=== PATIENT | male | born 1970 | race Caucasian/White ===

== ENCOUNTER 2018-03-29 17:35 | Emergency (ER) | payer OTHER ==
[~2018-03-29] VITALS: Ht 188 cm; Wt 78.2 kg
[2018-03-29 19:07] LABS: CLARITY,URINE CLEAR (Clear); COLOR,URINE YELLOW (Yellow); GLUCOSE, URINE NEGATIVE (Neg); KETONES,URINE NEGATIVE (Neg); LEUKOCYTE ESTERASE ,URINE NEGATIVE (Neg); NITRITES, URINE NEGATIVE (Neg); OCCULT BLOOD,URINE MODERATE (Neg); PH,URINE 5.5 (4.8-8.0); PROTEIN,URINE NEGATIVE (Neg); UROBILINOGEN,URINE 0.2 E.U/dL (0.2-1.0)
[2018-03-29 19:09] LABS: UA COLLECTION TYPE CLN CATCH MIDSTREAM
[2018-03-29 19:12] LABS: BASOPHILS % (AUTO) 0.5 % (0-1); EOSINOPHILS # (AUTO) 0.3 X10'3 (0-0.9); EOSINOPHILS % (AUTO) 5.2 % (0-6); HEMOGLOBIN 14.5 g/dl (14.0-17.9); LYMPHOCYTES # (AUTO) 1.7 X10'3 (1.1-4.8); LYMPHOCYTES % (AUTO) 32.9 % (21-51); MEAN CORPUSCULAR HEMOGLOBIN 30.4 PG (27.0-31.0); MEAN CORPUSCULAR HGB CONC 34.4 % (33.0-36.5); MEAN CORPUSCULAR VOLUME 88.3 FL (78-98); MEAN PLATELET VOLUME 8.6 FL (7.4-10.4); MONOCYTES # (AUTO) 0.4 X10'3 (0-0.9); MONOCYTES % (AUTO) 8.4 % (2-12); NEUTROPHILS # (AUTO) 2.8 X10'3 (1.8-7.7); PLATELET COUNT 208 X10'3 (140-440); RED BLOOD COUNT 4.76 X10'6 (4.70-6.10); RED CELL DISTRIBUTION WIDTH 12.4 % (11.5-14.5); WHITE BLOOD COUNT 5.3 X10'3 (4.5-11.0)
[2018-03-29 19:14] LABS: WBC,URINE NONE SEEN /HPF (0-4)
[2018-03-29 19:15] LABS: BACTERIA,URINE NONE SEEN /HPF (Neg); MUCUS STRANDS FEW /LPF (Neg); RBC,URINE 20-50 /HPF (0-2); SQUAMOUS EPITHELIAL CELL,UR FEW /LPF (FEW)
[2018-03-29 19:21] LABS: ALANINE AMINOTRANSFERASE 36 U/L (12-78); ALBUMIN/GLOBULIN RATIO 1.1 (1.1-1.5); ALKALINE PHOSPHATASE 43 IU/L (46-116); ANION GAP 8 (8-16); ASPARTATE AMINO TRANSFERASE 16 U/L (10-37); BILIRUBIN,TOTAL 0.6 MG/DL (0.1-1.0); BLOOD UREA NITROGEN 22 MG/DL (7-18); BUN/CREATININE RATIO 20.8 (5.4-32.0); CALCIUM 9.1 MG/DL (8.5-10.1); CHLORIDE 109 MMOL/L (99-107); CREATININE 1.06 MG/DL (0.60-1.10); GLUCOSE 115 MG/DL (70-104); POTASSIUM 3.9 MMOL/L (3.5-5.1); SODIUM 144 MMOL/L (135-145); TOTAL PROTEIN 7.5 G/DL (6.4-8.2); eGFR 74 ML/MIN
[2018-03-29] MEDS ORDERED: HYDR-565 PO (19:55)
[2018-03-29] MEDS ORDERED: FLO0.4C PO (19:55)
[2018-03-29] MEDS ORDERED: IBUP-1984 PO (19:55)
[2018-03-29 20:14] VITALS: BP 127/79
== END 2018-03-29 20:16 | disposition home or self-care (01) ==
LOC: ER 17:36
DX: N20.2 Calculus of kidney with calculus of ureter (principal); Z79.899 Other long term (current) drug therapy
CPT/HCPCS: 36415; 74176; 80053; 81001; 85025; 99285

== ENCOUNTER 2018-05-30 01:39 | Inpatient (IN) | payer OTHER ==
[~2018-05-30] VITALS: Ht 188 cm; Wt 95.5 kg
[2018-05-30] MEDS ORDERED: ketorolac trometh. 30mg/ml inj. IV ONE (02:30)
[2018-05-30] MEDS ORDERED: normal saline 1000ML IV soln IVB ONE (02:30)
[2018-05-30] MEDS ORDERED: meperidine/PF 50mg/ml syringe IV ONE (02:30)
[2018-05-30] MEDS ORDERED: LIDOcaine 2% (20 mg/ml) 5ml cardiac syringe IV STA (02:30)
[2018-05-30] MEDS ORDERED: tamsulosin 0.4mg capsule PO ONE (02:30)
[2018-05-30 02:55] LABS: BASOPHILS % (AUTO) 0.5 % (0-1); EOSINOPHILS # (AUTO) 0.1 X10'3 (0-0.9); EOSINOPHILS % (AUTO) 0.6 % (0-6); HEMATOCRIT 42.8 % (42.0-52.0); HEMOGLOBIN 14.7 g/dl (14.0-17.9); LYMPHOCYTES # (AUTO) 0.6 X10'3 (1.1-4.8); LYMPHOCYTES % (AUTO) 6.9 % (21-51); MEAN CORPUSCULAR HEMOGLOBIN 30.4 PG (27.0-31.0); MEAN CORPUSCULAR HGB CONC 34.4 % (33.0-36.5); MEAN CORPUSCULAR VOLUME 88.4 FL (78-98); MEAN PLATELET VOLUME 8.4 FL (7.4-10.4); MONOCYTES # (AUTO) 0.4 X10'3 (0-0.9); MONOCYTES % (AUTO) 4.7 % (2-12); NEUTROPHILS # (AUTO) 7.8 X10'3 (1.8-7.7); NEUTROPHILS % (AUTO) 87.3 % (42-75); PLATELET COUNT 202 X10'3 (140-440); RED BLOOD COUNT 4.84 X10'6 (4.70-6.10); RED CELL DISTRIBUTION WIDTH 12.6 % (11.5-14.5)
[2018-05-30 03:13] LABS: ALANINE AMINOTRANSFERASE 39 U/L (12-78); ALBUMIN 4.2 G/DL (3.4-5.0); ALBUMIN/GLOBULIN RATIO 1.2 (1.1-1.5); ALKALINE PHOSPHATASE 47 IU/L (46-116); ANION GAP 9 (8-16); ASPARTATE AMINO TRANSFERASE 20 U/L (10-37); BILIRUBIN,TOTAL 0.8 MG/DL (0.1-1.0); BLOOD UREA NITROGEN 22 MG/DL (7-18); BUN/CREATININE RATIO 15.9 (5.4-32.0); CALCIUM 9.1 MG/DL (8.5-10.1); CHLORIDE 104 MMOL/L (99-107); CREATININE 1.38 MG/DL (0.60-1.10); GLUCOSE 137 MG/DL (70-104); POTASSIUM 3.9 MMOL/L (3.5-5.1); SODIUM 139 MMOL/L (135-145); TOTAL CARBON DIOXIDE 26.5 MMOL/L (24-32); TOTAL PROTEIN 7.8 G/DL (6.4-8.2); eGFR 55 ML/MIN
[2018-05-30] MEDS ORDERED: KETO10TA2 PO (05:33)
[2018-05-30] MEDS ORDERED: FLO0.4C PO (05:33)
[2018-05-30] MEDS ORDERED: HYDR-565 PO (05:33)
[2018-05-30] MEDS ORDERED: ONDA4TAB9 SL (05:33)
[2018-05-30] MEDS ORDERED: levoFLOXACIN-Levaquin 750MG/D5 150 ML IV STA (05:53)
[2018-05-30] MEDS ORDERED: TAMSULOSIN CAP 0.4MG (05:58)
[2018-05-30] MEDS ORDERED: ondansetron/PF 4mg/2ml inj IV PRN (07:35)
[2018-05-30] MEDS ORDERED: bisacodyl 10mg suppository rectal RC PRN (07:35)
[2018-05-30] MEDS ORDERED: diphenhydrAMINE 25mg capsule PO PRN (07:35)
[2018-05-30] MEDS ORDERED: morphine 4 MG/ML inj SYRINge IV PRN (07:35)
[2018-05-30] MEDS ORDERED: HYDROmorphone inj. 0.5 MG/0.5 ML DISP.SYRIN IV PRN ×2 (07:35)
[2018-05-30] MEDS ORDERED: mag hydrox/Alum hydrox/simeth 30ml oral suspension PO PRN (07:35)
[2018-05-30] MEDS ORDERED: HYDROcodone/acetaminophen 5mg/325mg tablet PO PRN (07:35)
[2018-05-30] MEDS ORDERED: acetaminophen 650mg rectal suppository RC PRN (07:35)
[2018-05-30] MEDS ORDERED: metoclopramide 5 mg/ml inj IV PRN (07:35)
[2018-05-30] MEDS ORDERED: magnesium hydroxide 30ml (MOM) UD suspension PO PRN (07:35)
[2018-05-30] MEDS ORDERED: acetaminophen 325mg tablet PO PRN ×2 (07:35)
[2018-05-30] MEDS ORDERED: diphenhydrAMINE 50 mg/ml inj IV PRN (07:35)
[2018-05-30] MEDS: docusate sod 100mg capsule PO SCH ×2 (08:00→19:59)
[2018-05-30] MEDS: levoFLOXACIN-Levaquin 750MG/D5 150 ML IV SCH (08:00)
[2018-05-30 08:21] LABS: CLARITY,URINE CLEAR (Clear); COLOR,URINE YELLOW (Yellow); GLUCOSE, URINE NEGATIVE (Neg); KETONES,URINE NEGATIVE (Neg); LEUKOCYTE ESTERASE ,URINE NEGATIVE (Neg); NITRITES, URINE NEGATIVE (Neg); OCCULT BLOOD,URINE LARGE (Neg); PROTEIN,URINE NEGATIVE (Neg); UROBILINOGEN,URINE 0.2 E.U/dL (0.2-1.0)
[2018-05-30 08:25] LABS: UA COLLECTION TYPE CLN CATCH MIDSTREAM
[2018-05-30 08:26] LABS: BACTERIA,URINE NONE SEEN /HPF (Neg); RBC,URINE 0-2 /HPF (0-2); WBC,URINE 0-4 /HPF (0-4)
[2018-05-30 08:27] LABS: MUCUS STRANDS NONE SEEN /LPF (Neg); SQUAMOUS EPITHELIAL CELL,UR NONE SEEN /LPF (FEW)
[2018-05-30] MEDS: dextrose 5%-1/2 normal saline 1,000 ML IV SCH ×2 (08:52→20:38)
[2018-05-30 10:32] LABS: PARTIAL THROMBOPLASTIN TIME 24 SECONDS (22-32); PROTHROMBIN TIME 10.8 SECONDS (9.0-12.0)
[2018-05-30] MEDS ORDERED: GLUC1CAP33 PO (10:42)
[2018-05-30] MEDS ORDERED: MULT-38 PO (10:42)
[2018-05-30] MEDS ORDERED: METO100T7 PO (10:42)
[2018-05-30] MEDS ORDERED: LOSA25TA21 PO (10:42)
[2018-05-30 10:45] LABS: PHOSPHORUS 3.7 MG/DL (2.3-4.5)
[2018-05-30] MEDS ORDERED: HYDROmorphone 1 mg/ml syringe ONE (13:27)
[2018-05-30 15:00] VITALS: BP 131/80
[2018-05-30] MEDS: morphine 4 MG/ML inj SYRINge IV PRN ×2 (16:11→20:45)
[2018-05-30] MEDS: HYDROcodone/acetaminophen 10/325mg tab PO PRN ×2 (17:16→21:22)
[2018-05-30 20:00] VITALS: BP 120/72
[2018-05-30] MEDS ORDERED: temazepam 15mg capsule PO PRN (21:00)
[2018-05-30] MEDS ORDERED: HYDROmorphone 1 mg/ml syringe IV PRN (21:38)
[2018-05-31] VITALS (12 sets, daily range): BP systolic 107–146; BP diastolic 55–81
[2018-05-31] MEDS: HYDROmorphone 1 mg/ml syringe IV PRN ×3 (00:59→10:19)
[2018-05-31] MEDS: dextrose 5%-1/2 normal saline 1,000 ML IV SCH ×2 (03:32→07:43)
[2018-05-31 06:06] LABS: BASOPHILS % (AUTO) 0.2 % (0-1); EOSINOPHILS # (AUTO) 0.2 X10'3 (0-0.9); EOSINOPHILS % (AUTO) 2.8 % (0-6); HEMATOCRIT 36.6 % (42.0-52.0); HEMOGLOBIN 12.6 g/dl (14.0-17.9); LYMPHOCYTES # (AUTO) 1.9 X10'3 (1.1-4.8); MEAN CORPUSCULAR HEMOGLOBIN 30.3 PG (27.0-31.0); MEAN CORPUSCULAR HGB CONC 34.5 % (33.0-36.5); MEAN CORPUSCULAR VOLUME 87.9 FL (78-98); MEAN PLATELET VOLUME 7.9 FL (7.4-10.4); MONOCYTES # (AUTO) 0.5 X10'3 (0-0.9); MONOCYTES % (AUTO) 8.9 % (2-12); NEUTROPHILS # (AUTO) 3.4 X10'3 (1.8-7.7); NEUTROPHILS % (AUTO) 56.1 % (42-75); PLATELET COUNT 180 X10'3 (140-440); RED BLOOD COUNT 4.16 X10'6 (4.70-6.10); RED CELL DISTRIBUTION WIDTH 12.8 % (11.5-14.5); WHITE BLOOD COUNT 6.1 X10'3 (4.5-11.0)
[2018-05-31 06:28] LABS: ALANINE AMINOTRANSFERASE 31 U/L (12-78); ALBUMIN 3.3 G/DL (3.4-5.0); ALKALINE PHOSPHATASE 35 IU/L (46-116); ANION GAP 3 (8-16); ASPARTATE AMINO TRANSFERASE 22 U/L (10-37); BILIRUBIN,TOTAL 1.2 MG/DL (0.1-1.0); BLOOD UREA NITROGEN 17 MG/DL (7-18); BUN/CREATININE RATIO 16.8 (5.4-32.0); CALCIUM 8.6 MG/DL (8.5-10.1); CHLORIDE 108 MMOL/L (99-107); CREATININE 1.01 MG/DL (0.60-1.10); GLUCOSE 101 MG/DL (70-104); POTASSIUM 3.6 MMOL/L (3.5-5.1); SODIUM 140 MMOL/L (135-145); TOTAL CARBON DIOXIDE 29.5 MMOL/L (24-32); TOTAL PROTEIN 6.5 G/DL (6.4-8.2); eGFR 79 ML/MIN
[2018-05-31] MEDS: docusate sod 100mg capsule PO SCH (07:03)
[2018-05-31] MEDS: levoFLOXACIN-Levaquin 750MG/D5 150 ML IV SCH (07:42)
[2018-05-31] MEDS: HYDROcodone/acetaminophen 10/325mg tab PO PRN ×2 (07:42→17:40)
[2018-05-31] MEDS ORDERED: pantoprazole 40 MG vial IV SCH (08:00)
[2018-05-31] MEDS ORDERED: ringers solution, lacted 1,000 ML IV SCH (12:56)
[2018-05-31] MEDS ORDERED: morphine 4 MG/ML inj SYRINge IV PRN ×2 (13:00)
[2018-05-31] MEDS ORDERED: proCHLORperazine 10 MG/2 ml inj IV PRN (13:00)
[2018-05-31] MEDS ORDERED: ondansetron/PF 4mg/2ml inj IV PRN (13:00)
[2018-05-31] MEDS ORDERED: meperidine/PF 25mg/ml syringe IV PRN ×3 (13:00)
[2018-05-31] MEDS ORDERED: midazolam 2 mg/2 ml injection ONE (13:24)
[2018-05-31] MEDS ORDERED: fentaNYL/PF 50MCG/1 ML 2ML syringe ONE (13:24)
[2018-05-31] MEDS ORDERED: LIDOcaine 2% (20mg/ml) 5ml vial ONE (13:27)
[2018-05-31] MEDS ORDERED: propofol inj 20 ML IV ONE (13:27)
[2018-05-31] MEDS ORDERED: propofol 10mg/ml 20ml vial IV ONE (13:45)
[2018-05-31] MEDS ORDERED: sevoflurane 250ml liquid IH ONE (13:45)
[2018-05-31] MEDS ORDERED: dexamethasone sod phosphate 4mg/ml inj. ONE (13:45)
[2018-05-31] MEDS ORDERED: LIDOcaine 1%/PF 5ML 10 MG/ML VIAL ONE (13:45)
[2018-05-31] MEDS ORDERED: ondansetron/PF 4mg/2ml inj ONE (14:10)
[2018-05-31] MEDS ORDERED: HYDR-569 PO (18:15)
== END 2018-05-31 20:28 | disposition home or self-care (01) | DRG 670 ==
LOC: ER 01:39 → ED HOLD 07:32 → SUR 3N 15:35 → PACU 05-31 13:13 → SUR 3N 05-31 16:27
PROVIDERS: ADMIT Family Medicine; ATTEND Family Medicine
PROC: 0TC68ZZ Extirpation of Matter from Right Ureter, Via Natural or Artificial Opening Endoscopic (ICD-10-PCS; 2018-05-31)
PROC: 0T768DZ Dilation of Right Ureter with Intraluminal Device, Via Natural or Artificial Opening Endoscopic (ICD-10-PCS; principal; 2018-05-31 13:50)
DX: N13.6 Pyonephrosis (principal); E86.0 Dehydration; N17.9 Acute kidney failure, unspecified; I10 Essential (primary) hypertension; K57.30 Diverticulosis of large intestine without perforation or abscess without bleeding; K76.0 Fatty (change of) liver, not elsewhere classified; N40.0 Benign prostatic hyperplasia without lower urinary tract symptoms; Z90.49 Acquired absence of other specified parts of digestive tract; Z79.899 Other long term (current) drug therapy; Z87.442 Personal history of urinary calculi
CPT/HCPCS: 96361; 96374; 96375; 99285; Z7506; 36415; 74018; 74176; 80053; 81001; 83605; 83735; 83880; 84100; 85025; 85610; 85730; 87040; 93005; A4402; C1769; C2617; C9113; J1100; J1170; J1885; J1956; J2001; J2175; J2250; J2270; J2405; J2704; J3010; J7030; J7120